=== PATIENT | male | born 1950 | race Two or more races ===

== ENCOUNTER 2018-11-13 10:08 | Inpatient (IN) | payer MEDICAID ==
[~2018-11-13] VITALS: Ht 167.6 cm; Wt 80.7 kg
[2018-11-13] MEDS ORDERED: VANCOMYCIN 1 G PREMIX 200 ML IV ONE (11:30)
[2018-11-13 11:49] LABS: EOSINOPHILS % 12.9 % (0.0-5.0); HEMATOCRIT. 34.3 % (42.0-52.0); HEMOGLOBIN. 11.3 g/dL (14.0-18.0); LYMPHOCYTES % 17.4 % (20.0-50.0); MEAN CORPUSCULAR HEMOGLOBIN 30.9 pg (28.0-32.0); MEAN CORPUSCULAR VOLUME 93.7 fL (80.0-94.0); MEAN PLATELET VOLUME 7.8 fl (7.4-10.4); MONOCYTES % 11.9 % (2.0-8.0); NEUTROPHILS % 56.8 % (40.0-76.0); PLATELET 263 x1000/uL (130-400); RED BLOOD CELL COUNT 3.66 mill/uL (4.7-6.1); RED CELL DISTRIBUTION WIDTH 14.3 % (11.6-14.6)
[2018-11-13 11:58] LABS: PROTHROMBIN TIME 10.3 sec (9.6-11.0)
[2018-11-13] MEDS ORDERED: SODIUM CHLORIDE 0.9% 1,000 ML IV ONE (12:01)
[2018-11-13] MEDS ORDERED: HYDROCODONE/ACETAMINOPHEN 5/325MG TABLET PO ONE (13:00)
[2018-11-13] MEDS ORDERED: DEXTROSE 50% WATER 50ML SYRINGE IV ONE (14:44)
[2018-11-13] MEDS ORDERED: MAGNESIUM/ALUMINUM HYDROXIDE/SIMETHICONE 30ML UDC PO PRN (15:15)
[2018-11-13] MEDS ORDERED: DOCUSATE SODIUM 100MG CAPSULE PO PRN (15:15)
[2018-11-13] MEDS ORDERED: HYDROMORPHONE HCL/PF 2MG/ML CPJ IV PRN (15:15)
[2018-11-13] MEDS ORDERED: ONDANSETRON HCL 4MG/2ML INJ IV PRN (15:15)
[2018-11-13] MEDS ORDERED: GUAIFENESIN 200MG/10ML SUGAR FREE UDC PO PRN (15:15)
[2018-11-13] MEDS ORDERED: CLONIDINE 0.1MG TABLET PO PRN (15:15)
[2018-11-13 15:53] VITALS: BP 145/68
[2018-11-13 15:56] LABS: BG BASE EXCESS -4.3 mmol/L (-2.0-2.0); BG CARBOXYHEMOGLOBIN 1.7 % (0.5-1.5); BG DEOXYHEMOGLOBIN 6.8 % (0.0-5.0); BG FRACTION INSPIRED OXYGEN 21; BG HCO3 ACT 21.6 mmol/L (22.0-26.0); BG OXYGEN SATURATION 93.1 % (92.0-98.5); BG OXYHEMOGLOBIN 91.5 % (94.0-97.0); BG PCO2 42.6 mmHg (35.0-45.0); BG PH 7.323 (7.350-7.450); BG PO2 70.8 mmHg (75.0-100.0); BG SAMPLE SITE RIGHT BRACHIAL; BG TOTAL HEMOGLOBIN 12.2 g/dL (12.0-18.0); BG VENT MODE ROOM AIR
[2018-11-13 16:00] VITALS: BP 145/68
[2018-11-13] MEDS ORDERED: LEVOFLOXACIN 500MG PREMIX 100 ML IV SCH (18:00)
[2018-11-13] MEDS ORDERED: SODIUM POLYSTYRENE SULFONATE 15 G/60 ML BOT PR NR (18:00)
[2018-11-13] MEDS: ENOXAPARIN 40MG/0.4ML SYR SUBCUT SCH (19:04)
[2018-11-13] MEDS: VANCOMYCIN 750 MG PREMIX 150 ML IV SCH (20:38)
[2018-11-13] MEDS ORDERED: DEXT 5%/0.45% NACL 500ML 1,000 ML IV SCH (22:00)
[2018-11-13] MEDS ORDERED: SODIUM POLYSTYRENE SULFONATE 15 G/60 ML BOT PO SCH (23:00)
[2018-11-14] VITALS: BP 99/48
[2018-11-14] MEDS: DEXT 5%/0.45% NACL 1000ML 1,000 ML IV SCH ×2 (01:14→14:20)
[2018-11-14 04:00] VITALS: BP 103/55
[2018-11-14 06:51] LABS: HEMATOCRIT. 33.1 % (42.0-52.0); MEAN CORPUSCULAR HEMOGLOBIN 30.9 pg (28.0-32.0); MEAN CORPUSCULAR VOLUME 93.3 fL (80.0-94.0); MEAN PLATELET VOLUME 8.6 fl (7.4-10.4); PLATELET 256 x1000/uL (130-400); RED BLOOD CELL COUNT 3.55 mill/uL (4.7-6.1); RED CELL DISTRIBUTION WIDTH 14.1 % (11.6-14.6)
[2018-11-14 07:29] LABS: CHLORIDE 109 mEq/L (98-107)
[2018-11-14 08:00] VITALS: BP 122/64
[2018-11-14] MEDS: VANCOMYCIN 750 MG PREMIX 150 ML IV SCH (09:08)
[2018-11-14] MEDS: AMLODIPINE 10MG TABLET PO SCH (09:09)
[2018-11-14 10:33] LABS: PLATELET ESTIMATE NORMAL
[2018-11-14 12:00] VITALS: BP 116/62
[2018-11-14 16:00] VITALS: BP 121/62
[2018-11-14] MEDS: ENOXAPARIN 40MG/0.4ML SYR SUBCUT SCH (18:49)
[2018-11-14] MEDS ORDERED: LEVOFLOXACIN 500MG PREMIX 100 ML IV SCH (20:00)
[2018-11-14] MEDS: LEVOFLOXACIN 500MG PREMIX 100 ML IV SCH (20:37)
[2018-11-15] MEDS: VANCOMYCIN 1 G PREMIX 200 ML IV SCH ×3 (00:10→21:47)
[2018-11-15 08:00] VITALS: BP 115/61
[2018-11-15] MEDS: AMLODIPINE 10MG TABLET PO SCH (08:20)
[2018-11-15] MEDS: DEXT 5%/0.45% NACL 1000ML 1,000 ML IV SCH (08:21)
[2018-11-15] MEDS: HYDROCODONE/ACETAMINOPHEN 5/325MG TABLET PO PRN (10:41)
[2018-11-15 11:52] VITALS: BP 114/51
[2018-11-15 16:00] VITALS: BP 106/55
[2018-11-15] MEDS: ENOXAPARIN 40MG/0.4ML SYR SUBCUT SCH (16:16)
[2018-11-15 20:00] VITALS: BP 105/50
[2018-11-15] MEDS: LEVOFLOXACIN 500MG PREMIX 100 ML IV SCH (20:44)
[2018-11-16] VITALS (7 sets, daily range): BP systolic 91–121; BP diastolic 53–61
[2018-11-16] MEDS: DEXT 5%/0.45% NACL 1000ML 1,000 ML IV SCH ×2 (06:34→21:50)
[2018-11-16] MEDS: AMLODIPINE 10MG TABLET PO SCH (08:19)
[2018-11-16] MEDS: VANCOMYCIN 1 G PREMIX 200 ML IV SCH ×2 (08:20→21:48)
[2018-11-16] MEDS: HYDROCODONE/ACETAMINOPHEN 5/325MG TABLET PO PRN (10:03)
[2018-11-16] MEDS: ENOXAPARIN 40MG/0.4ML SYR SUBCUT SCH (16:24)
[2018-11-16] MEDS: LEVOFLOXACIN 500MG PREMIX 100 ML IV SCH (20:07)
[2018-11-17] VITALS: BP 120/58
[2018-11-17 04:00] VITALS: BP 121/56
[2018-11-17 08:00] VITALS: BP 124/56
[2018-11-17] MEDS: HYDROCODONE/ACETAMINOPHEN 5/325MG TABLET PO PRN ×3 (08:38→19:50)
[2018-11-17] MEDS: AMLODIPINE 10MG TABLET PO SCH (08:38)
[2018-11-17] MEDS: VANCOMYCIN 1 G PREMIX 200 ML IV SCH ×2 (08:38→21:26)
[2018-11-17 09:57] LABS: CHLORIDE 101 mEq/L (98-107)
[2018-11-17 12:00] VITALS: BP 116/59
[2018-11-17 16:00] VITALS: BP 100/53
[2018-11-17] MEDS: ENOXAPARIN 40MG/0.4ML SYR SUBCUT SCH (16:00)
[2018-11-17] MEDS: ACETAMINOPHEN 325MG TABLET PO PRN (16:53)
[2018-11-17 20:00] VITALS: BP 119/57
[2018-11-17] MEDS: LEVOFLOXACIN 500MG TABLET PO SCH (21:28)
[2018-11-18] VITALS: BP 116/63
[2018-11-18 04:00] VITALS: BP 116/62
[2018-11-18 08:00] VITALS: BP 124/60
[2018-11-18] MEDS: HYDROCODONE/ACETAMINOPHEN 5/325MG TABLET PO PRN ×3 (08:11→21:29)
[2018-11-18] MEDS: VANCOMYCIN 1 G PREMIX 200 ML IV SCH (08:15)
[2018-11-18] MEDS: AMLODIPINE 10MG TABLET PO SCH (08:15)
[2018-11-18 12:00] VITALS: BP 112/60
[2018-11-18 16:00] VITALS: BP 102/66
[2018-11-18] MEDS: ENOXAPARIN 40MG/0.4ML SYR SUBCUT SCH (17:37)
[2018-11-18] MEDS: ACETAMINOPHEN 325MG TABLET PO PRN (17:42)
[2018-11-18] MEDS: DEXT 5%/0.45% NACL 1000ML 1,000 ML IV SCH (17:44)
[2018-11-18 20:00] VITALS: BP 127/47
[2018-11-18] MEDS: LEVOFLOXACIN 500MG TABLET PO SCH (21:31)
[2018-11-18] MEDS: VANCOMYCIN 750 MG PREMIX 150 ML IV SCH (21:31)
[2018-11-19] VITALS: BP 141/74
[2018-11-19 04:00] VITALS: BP 142/69
[2018-11-19] MEDS: HYDROCODONE/ACETAMINOPHEN 5/325MG TABLET PO PRN (05:44)
[2018-11-19 08:00] VITALS: BP 142/73
[2018-11-19] MEDS: VANCOMYCIN 750 MG PREMIX 150 ML IV SCH ×2 (08:57→21:14)
[2018-11-19] MEDS: AMLODIPINE 10MG TABLET PO SCH (08:58)
[2018-11-19 12:00] VITALS: BP 110/57
[2018-11-19 16:00] VITALS: BP 102/59
[2018-11-19] MEDS: ENOXAPARIN 40MG/0.4ML SYR SUBCUT SCH (16:38)
[2018-11-19 20:00] VITALS: BP 115/89
[2018-11-19] MEDS: LEVOFLOXACIN 500MG TABLET PO SCH (21:14)
[2018-11-19] MEDS: DEXT 5%/0.45% NACL 1000ML 1,000 ML IV SCH (21:15)
[2018-11-20] VITALS: BP 102/57
[2018-11-20 04:00] VITALS: BP 112/53
[2018-11-20 08:00] VITALS: BP 117/61
[2018-11-20] MEDS: VANCOMYCIN 750 MG PREMIX 150 ML IV SCH ×2 (09:16→20:29)
[2018-11-20] MEDS: AMLODIPINE 10MG TABLET PO SCH (09:17)
[2018-11-20] MEDS: HYDROCODONE/ACETAMINOPHEN 5/325MG TABLET PO PRN (09:24)
[2018-11-20 11:30] VITALS: BP 107/53
[2018-11-20 16:00] VITALS: BP 102/54
[2018-11-20] MEDS: ACETAMINOPHEN 325MG TABLET PO PRN (16:12)
[2018-11-20] MEDS: ENOXAPARIN 40MG/0.4ML SYR SUBCUT SCH (19:20)
[2018-11-20 20:00] VITALS: BP 117/62
[2018-11-20] MEDS: LEVOFLOXACIN 500MG TABLET PO SCH (20:29)
[2018-11-21] VITALS: BP 116/52
[2018-11-21] MEDS: DEXT 5%/0.45% NACL 1000ML 1,000 ML IV SCH (01:42)
[2018-11-21 04:00] VITALS: BP 116/52
[2018-11-21 08:00] VITALS: BP 101/44
[2018-11-21] MEDS: AMLODIPINE 10MG TABLET PO SCH (09:51)
[2018-11-21] MEDS: VANCOMYCIN 750 MG PREMIX 150 ML IV SCH (10:58)
[2018-11-21 12:00] VITALS: BP 99/52
[2018-11-21 12:49] VITALS: BP 115/60
[2018-11-21] MEDS: HYDROCODONE/ACETAMINOPHEN 5/325MG TABLET PO PRN (12:51)
[2018-11-21 15:51] LABS: HEMATOCRIT. 32.6 % (42.0-52.0); HEMOGLOBIN. 10.9 g/dL (14.0-18.0); MEAN CORPUSCULAR HEMOGLOBIN 30.9 pg (28.0-32.0); MEAN CORPUSCULAR VOLUME 92.8 fL (80.0-94.0); MEAN PLATELET VOLUME 8.8 fl (7.4-10.4); PLATELET 212 x1000/uL (130-400); RED BLOOD CELL COUNT 3.52 mill/uL (4.7-6.1); RED CELL DISTRIBUTION WIDTH 13.8 % (11.6-14.6)
[2018-11-21 15:56] LABS: CHLORIDE 105 mEq/L (98-107)
[2018-11-21 16:01] VITALS: BP 103/54
[2018-11-21 16:17] LABS: PLATELET ESTIMATE NORMAL
== END 2018-11-21 15:20 | disposition home health service (06) | DRG 383 ==
LOC: ER 10:08 → 6EST 11:58 → EDBEDREQ 12:02 → ENRESERV 12:33 → SUPCPDRO 15:02
PROVIDERS: ADMIT Hospitalist; ATTEND Hospitalist
DX: L03.116 Cellulitis of left lower limb (principal); E43 Unspecified severe protein-calorie malnutrition; G93.41 Metabolic encephalopathy; E16.2 Hypoglycemia, unspecified; L97.909 Non-pressure chronic ulcer of unspecified part of unspecified lower leg with unspecified severity; F10.10 Alcohol abuse, uncomplicated; I10 Essential (primary) hypertension; Z72.0 Tobacco use; R41.82 Altered mental status, unspecified; Z88.0 Allergy status to penicillin
CPT/HCPCS: 36415; 36600; 73590; 80048; 80202; 82140; 82375; 82805; 82962; 93970; 96374; 97022; 97161; 99285; C1893; J1170; J1650; J1956; J3370; J7030; J7040